=== PATIENT | female | born 1960 | race Two or more races ===

== ENCOUNTER 2020-03-15 15:40 | Emergency (ER) | payer MEDICAID ==
[~2020-03-15] VITALS: Ht 165.1 cm; Wt 104.3 kg
[2020-03-15 17:25] LABS: Basophils # (auto) 0 10 ^3/uL (0-0.2); Basophils % (auto) 0.2 % (0.0-2.0); Eosinophils # (auto) 0 10 ^3/uL (0-0.8); Hematocrit 39.8 % (36.0-46.0); Hemoglobin 13.3 g/dL (12.2-16.2); Lymphocytes # (auto) 0.9 10 ^3/uL (0.4-5.4); Lymphocytes % (auto) 9.5 % (10.0-50.0); Mean Corpuscular Hemoglobin 32.3 pg (28.0-32.0); Mean Corpuscular Hgb Conc. 33.4 g/dL (32.0-36.0); Mean Corpuscular Volume 96.7 fL (80.0-100.0); Monocytes # (auto) 0.1 10 ^3/uL (0-1.3); Monocytes % (auto) 1.3 % (0.0-12.0); Neutrophils # (auto) 8.6 10 ^3/uL (1.6-8.6); Nucleated Red Blood Cells % 0.1 %; Platelet Count (auto) 236 10^3/uL (140-450); Red Blood Cells 4.11 10^6/uL (4.0-5.20); Red Cell Distribution Width 13.7 % (11.8-14.3); White Blood Cell 9.6 10^3/uL (4.4-10.8)
[2020-03-15 17:42] LABS: Albumin 3.7 g/dL (3.4-5.0); Calcium 8.4 mg/dL (8.5-10.1); INR 0.96 (0.9-1.15); Magnesium 2.1 mg/dL (1.6-2.6); Partial Thromboplastin Time 25.7 sec (23.0-31.2); Potassium 3.7 mmol/L (3.5-5.1)
[2020-03-15 17:46] LABS: Bilirubin, Total 0.2 mg/dL (0.2-1.0); Total Protein 7.6 g/dL (6.4-8.2)
[2020-03-15] MEDS ORDERED: IOHEXOL 350 MG/ML 100ML IJ ONE (18:44)
[2020-03-15 19:40] VITALS: BP 144/90
== END 2020-03-15 20:20 | disposition left against medical advice (07) ==
LOC: EDBD 15:40 → ER 15:45
DX: R07.89 Other chest pain (principal); E78.5 Hyperlipidemia, unspecified; Z88.0 Allergy status to penicillin
CPT/HCPCS: 36415; 71045; 80053; 83735; 83880; 84443; 84484; 85025; 85379; 85610; 85730; 93005; 99285; Q9967

== ENCOUNTER 2023-11-19 08:25 | Inpatient (IN) | payer MEDICAID ==
[2023-11-19] VITALS (8 sets, daily range): BP systolic 128–144; BP diastolic 57–67; PULSE 64–85; RESP 15–18; TEMP 97.7–98.5; O2SAT 88–100
[~2023-11-19] VITALS: Ht 157.5 cm; Wt 107.8 kg
[~2023-11-19 08:25] MED LIST: ACET-1304 PO; IBU600T PO; MELA10CA OR; METH-1181 PO; MORP15TA PO; OMEP20TA PO; OXY10CRT PO; VITA-89 PO; ZOLP10TA PO
[2023-11-19] MEDS ORDERED: PROPOFOL 10 MG/ML 20 ML IV ONE ×3 (08:52→13:27)
[2023-11-19] MEDS ORDERED: ONDANSETRON HCL 4 MG/2 ML VIAL ONE (08:52)
[2023-11-19] MEDS ORDERED: GLYCOPYRROLATE 0.2 MG/ML 1ML VIAL ONE (08:52)
[2023-11-19] MEDS ORDERED: DexAMETHasone SOD PHOS 10MG/1ML VIAL INJ ONE ×2 (08:52→11:39)
[2023-11-19] MEDS ORDERED: LIDOCAINE 1% INJ PF 5ML AMP ONE (08:52)
[2023-11-19] MEDS ORDERED: KETOROLAC TROMETH 30 MG/ML 1ML VIAL ONE (08:52)
[2023-11-19] MEDS ORDERED: fentaNYL CITRATE 100 MCG/2 ML VL ONE (08:53)
[2023-11-19] MEDS ORDERED: KETAMINE 50mg/ML 1ml syringe ONE (08:53)
[2023-11-19] MEDS: CLINDAMYCIN 600MG IV 50 ML IV ONE (09:56)
[2023-11-19] MEDS: CLINDAMYCIN 300MG IV 50 ML IV ONE (10:00)
[2023-11-19] MEDS: TRANEXAMIC ACID 20 ML ONE (10:13)
[2023-11-19] MEDS: CEFEPIME 1GM/ 50ML 0 ML IV ONE (10:13)
[2023-11-19] MEDS: CELECOXIB 100 MG CAP PO ONE ×2 (10:36→14:00)
[2023-11-19] MEDS: GABAPENTIN 400 MG CAP PO ONE ×2 (10:36→14:00)
[2023-11-19] MEDS: ACETAMINOPHEN IV 1000 MG/100ML (10MG/ML) IV ONE ×2 (10:36→14:00)
[2023-11-19] MEDS ORDERED: SODIUM CHLORIDE LOCK 10 ML ONE ×2 (11:56→12:09)
[2023-11-19] MEDS ORDERED: ePHEDrine SULFATE 50 MG/ML AMP ONE (12:09)
[2023-11-19] MEDS: VANCOMYCIN HCL 1000 MG VL ONE (12:24)
[2023-11-19] MEDS ORDERED: ONDANSETRON HCL 4 MG/2 ML VIAL IV PRN (13:45)
[2023-11-19] MEDS: MORPHINE SULF 15mg ER tab PO SCH (13:45)
[2023-11-19] MEDS: HYDROmorphone HCL 2 MG/ML VL/or syr IV PRN ×2 (14:02→19:42)
[2023-11-19] MEDS: oxyCODONE HCL 5MG TAB ONE (14:02)
[2023-11-19] MEDS: HYDROmorphone HCL 2 MG/ML VL/or syr ONE (14:03)
[2023-11-19] MEDS: oxyCODONE HCL 5MG TAB PO PRN ×2 (14:05→16:53)
[2023-11-19] MEDS: SODIUM CHLORIDE 0.9% 1,000 ML IV SCH (14:10)
[2023-11-19] MEDS: METHOCARBAMOL 500 MG TAB PO SCH (14:57)
[2023-11-19] MEDS ORDERED: ZOLPIDEM TARTRATE 5 MG TAB PO PRN (15:00)
[2023-11-19] MEDS ORDERED: ZOLPIDEM TARTRATE 10 MG PO SCH (18:00)
[2023-11-19] MEDS: ACETAMINOPHEN 325 MG TAB PO SCH (19:15)
[2023-11-19] MEDS: KETOROLAC TROMETH 30 MG/ML 1ML VIAL IV SCH (19:17)
[2023-11-19] MEDS: CLINDAMYCIN 600MG IV 50 ML IV SCH (21:45)
[2023-11-19] MEDS: PREGABALIN 25 MG CAP PO SCH (21:56)
[2023-11-19] MEDS: ZOLPIDEM TARTRATE 5 MG TAB PO SCH (22:06)
[2023-11-20] VITALS (8 sets, daily range): BP systolic 103–146; BP diastolic 50–72; PULSE 63–84; RESP 15–20; TEMP 98–98.5; O2SAT 93–97
[2023-11-20 06:39] LABS: Basophils # (auto) 0 10 ^3/uL (0-0.2); Eosinophils # (auto) 0 10 ^3/uL (0-0.8); Hematocrit 30.3 % (36.0-46.0); Hemoglobin 10.2 g/dL (12.2-16.2); Lymphocytes # (auto) 1.2 10 ^3/uL (0.4-5.4); Lymphocytes % (auto) 10.4 % (10.0-50.0); Mean Corpuscular Hemoglobin 33.4 pg (28.0-32.0); Mean Corpuscular Hgb Conc. 33.7 g/dL (32.0-36.0); Mean Corpuscular Volume 98.9 fL (80.0-100.0); Monocytes # (auto) 0.9 10 ^3/uL (0-1.3); Monocytes % (auto) 7.7 % (0.0-12.0); Neutrophils # (auto) 9.6 10 ^3/uL (1.6-8.6); Neutrophils % (auto) 81.9 % (37.0-80.0); Platelet Count (auto) 200 10^3/uL (140-450); Red Blood Cells 3.06 10^6/uL (4.0-5.20); Red Cell Distribution Width 14.1 % (11.8-14.3); White Blood Cell 11.7 10^3/uL (4.4-10.8)
[2023-11-20 06:46] LABS: Chloride 109 mmol/L (98-107); Potassium 4.2 mmol/L (3.5-5.1); Sodium 140 mmol/L (136-145)
[2023-11-20 06:47] LABS: Anion Gap 4 (5-15); Calcium 8.8 mg/dL (8.7-10.4); Carbon Dioxide 27 mmol/L (20-30)
[2023-11-20 06:52] LABS: BUN/Creatinine Ratio 16.7 (10.0-20.0); Blood Urea Nitrogen 11 mg/dL (9-23); Glucose 134 mg/dL (74-106)
[2023-11-20] MEDS: APIXABAN 2.5 MG TAB PO SCH (09:49)
[2023-11-20] MEDS: PANTOPRAZOLE 40 MG TAB PO SCH (09:50)
[2023-11-20] MEDS ORDERED: PATIENTS OWN MEDICATION (Omeprazole (Gnp Omeprazole) 20 MG) PO SCH (10:00)
[2023-11-21] VITALS (7 sets, daily range): BP systolic 118–138; BP diastolic 52–72; PULSE 63–76; RESP 18–20; TEMP 97.8–98.3; O2SAT 95–99
[2023-11-21] MEDS ORDERED: PHENYLEPHRINE HCL 10 MG/ML VL IV ONE (18:01)
== END 2023-11-21 18:02 | disposition home health service (06) | DRG 324 ==
LOC: SUR 08:25 → OVERFLOW 13:45 → WEST WING 16:22
PROVIDERS: ADMIT Orthopaedic Surgery; ATTEND Orthopaedic Surgery
PROC: 0SR904Z Replacement of Right Hip Joint with Ceramic on Polyethylene Synthetic Substitute, Open Approach (ICD-10-PCS; principal; 2023-11-19 11:36)
DX: M16.11 Unilateral primary osteoarthritis, right hip (principal)
CPT/HCPCS: 36415; 72170; 80048; 85025; 86850; 86900; 86901; 97110; 97116; 97163; 97530; G0378; J0131; J1100; J1885; J2405; J2704; J3490